=== PATIENT | female | born 1950 | race Caucasian/White ===

== ENCOUNTER → 2020-11-11 | Outpatient (REF) | payer MEDICARE | LOC: M LAB REF 12:39 | PROVIDERS: ATTEND Ophthalmology | DX: C44.1192 Basal cell carcinoma of skin of left lower eyelid, including canthus (principal); D23.122 Other benign neoplasm of skin of left lower eyelid, including canthus ==

== ENCOUNTER 2024-10-18 06:48 | Day surgery (SDC) | payer MEDICARE ==
[~2024-10-18] VITALS: Ht 160 cm; Wt 105.0 kg
[~2024-10-18 06:48] MED LIST: ALBU2.5V10 INH; ASPI81TA26 PO; COMBAER6 INH; COQ150CH PO; CYAN500T14 PO; CYCLOPENTOLATE 1% OPHTH SOLN 2ML BTL OS SCH; HYDR12CA PO; INDA1.253 PO; INSUHUMDS SC; LIDOCAINE 3.5 % 1ML OPHTH TOPICAL GEL OU ONE; LOSA100T46 PO; METO1TAB33 PO; MIDAZOLAM INJ 2MG/2ML VIAL As Ordered ONE; NITR-67 PO; OFLOXACIN 0.3 % (OCUFLOX) OPTH SOL 5ML OS ONE; OMAL75AU SQ; OMEG10002 PO; OYST1TAB PO; PANT40TA29 PO; PHENYLEPHRINE 10% OPHTH SOL 5ML OS PRN; PHENYLEPHRINE 2.5% OPHTH SOL 2ML OS SCH; PRED1TABL PO; PROBCAP14 PO; RA M500C PO; SEMA1PEN2 SQ; SYMB80INH INH; THERTAB52 PO; TOUJ300I2 SC; TRIC145T22 PO; TROPICAMIDE 1% OPHTH SOLN 15ML OS SCH; VITA-243 PO; [UNRECOGNIZED DRUG - OTHER]; fentaNYL 100 MCG/2 ML INJECTION As Ordered ONE
[2024-10-18] MEDS: LIDOCAINE 1% SDV 5ML VIAL As Ordered ONE (09:08)
[2024-10-18] MEDS: CEFUROXIME 1MG/0.1ML INTRACAMERAL INJ As Ordered ONE (09:15)
[2024-10-18] MEDS: BSS IRRIG/VANCO(10MG)/TOBRA(5MG)/EPINEPH(1:1000-0.5CC)500ML BAG-ORONLY As Ordered ONE (09:15)
[2024-10-18 09:21] VITALS: TEMP 97.5; O2SAT 95
[2024-10-18 09:44] VITALS: BP 121/77
== END 2024-10-18 10:02 | disposition home or self-care (01) ==
LOC: M SDC 06:48
PROVIDERS: ATTEND Ophthalmology
DX: E11.36 Type 2 diabetes mellitus with diabetic cataract (principal); H25.12 Age-related nuclear cataract, left eye; I10 Essential (primary) hypertension; J45.909 Unspecified asthma, uncomplicated; G47.30 Sleep apnea, unspecified; E78.00 Pure hypercholesterolemia, unspecified; Z79.82 Long term (current) use of aspirin; Z79.899 Other long term (current) drug therapy; Z79.4 Long term (current) use of insulin; Z79.52 Long term (current) use of systemic steroids; Z90.49 Acquired absence of other specified parts of digestive tract; Z90.710 Acquired absence of both cervix and uterus; Z87.19 Personal history of other diseases of the digestive system
CPT/HCPCS: 66984; J0697; J2250; J3010; V2632

== ENCOUNTER 2024-10-25 09:46 | Day surgery (SDC) | payer MEDICARE ==
[~2024-10-25] VITALS: Ht 160 cm; Wt 102.1 kg
[~2024-10-25 09:46] MED LIST changes: -CYCLOPENTOLATE 1% OPHTH SOLN 2ML BTL OS SCH; -LIDOCAINE 3.5 % 1ML OPHTH TOPICAL GEL OU ONE; -MIDAZOLAM INJ 2MG/2ML VIAL As Ordered ONE; -OFLOXACIN 0.3 % (OCUFLOX) OPTH SOL 5ML OS ONE; -PHENYLEPHRINE 10% OPHTH SOL 5ML OS PRN; -PHENYLEPHRINE 2.5% OPHTH SOL 2ML OS SCH; -TROPICAMIDE 1% OPHTH SOLN 15ML OS SCH; -fentaNYL 100 MCG/2 ML INJECTION As Ordered ONE
[2024-10-25] MEDS ORDERED: LIDOCAINE 2% 100MG/5ML SDV (FOR ANES.) As Ordered ONE (10:16)
[2024-10-25] MEDS ORDERED: propofoL 200 MG/20 ML VIAL As Ordered ONE (10:16)
[2024-10-25 10:38] VITALS: TEMP 97.2
[2024-10-25 10:59] VITALS: BP 123/60; O2SAT 93
== END 2024-10-25 11:00 | disposition home or self-care (01) ==
LOC: M OPP 09:46
PROVIDERS: ATTEND Surgery
DX: Z12.11 Encounter for screening for malignant neoplasm of colon (principal); R19.5 Other fecal abnormalities; D12.0 Benign neoplasm of cecum; K57.30 Diverticulosis of large intestine without perforation or abscess without bleeding; K64.2 Third degree hemorrhoids; G47.30 Sleep apnea, unspecified; Z91.048 Other nonmedicinal substance allergy status; Z79.82 Long term (current) use of aspirin; Z79.4 Long term (current) use of insulin; Z79.85 Long-term (current) use of injectable non-insulin antidiabetic drugs; Z79.52 Long term (current) use of systemic steroids; Z79.899 Other long term (current) drug therapy

== ENCOUNTER 2024-11-29 07:05 | Day surgery (SDC) | payer MEDICARE ==
[~2024-11-29] VITALS: Ht 160 cm; Wt 105.5 kg
[~2024-11-29 07:05] MED LIST changes: +OMAL300A IM; +PHENYLEPHRINE 10% OPHTH SOL 5ML OD PRN; +PRED-1142 PO; -PRED1TABL PO; +SYMB16INH INH; +[UNRECOGNIZED DRUG - CODE]
[2024-11-29] MEDS ORDERED: fentaNYL 100 MCG/2 ML INJECTION As Ordered ONE (07:28)
[2024-11-29] MEDS ORDERED: MIDAZOLAM INJ 2MG/2ML VIAL As Ordered ONE (07:28)
[2024-11-29] MEDS: LIDOCAINE 3.5 % 1ML OPHTH TOPICAL GEL OU ONE (07:42)
[2024-11-29] MEDS: TROPICAMIDE 1% OPHTH SOLN 15ML OD SCH (07:42)
[2024-11-29] MEDS: PHENYLEPHRINE 2.5% OPHTH SOL 2ML OD SCH (07:42)
[2024-11-29] MEDS: OFLOXACIN 0.3 % (OCUFLOX) OPTH SOL 5ML OD ONE (07:42)
[2024-11-29] MEDS: CYCLOPENTOLATE 1% OPHTH SOLN 2ML BTL OD SCH (07:42)
[2024-11-29] MEDS ORDERED: GLUCOSE 4 GM CHEW PO PRN (07:45)
[2024-11-29] MEDS ORDERED: DEXTROSE 50% 50ML SYRINGE IV PRN (07:45)
[2024-11-29] MEDS ORDERED: GLUCAGON INJ 1MG VIAL SC PRN (07:45)
[2024-11-29] MEDS: INSULIN LISPRO (NovoLOG) PER UNIT SC PRN (07:56)
[2024-11-29] MEDS: CEFUROXIME 1MG/0.1ML INTRACAMERAL INJ As Ordered ONE (08:35)
[2024-11-29] MEDS: LIDOCAINE 1% SDV 5ML VIAL As Ordered ONE (08:35)
[2024-11-29] MEDS: BSS IRRIG/VANCO(10MG)/TOBRA(5MG)/EPINEPH(1:1000-0.5CC)500ML BAG-ORONLY As Ordered ONE (08:35)
[2024-11-29 08:51] VITALS: BP 131/61; TEMP 97.2; O2SAT 96
== END 2024-11-29 09:13 | disposition home or self-care (01) ==
LOC: M SDC 07:05
PROVIDERS: ATTEND Ophthalmology
DX: H25.11 Age-related nuclear cataract, right eye (principal); E11.9 Type 2 diabetes mellitus without complications; G47.30 Sleep apnea, unspecified; J30.9 Allergic rhinitis, unspecified; Z79.899 Other long term (current) drug therapy; Z98.42 Cataract extraction status, left eye
CPT/HCPCS: 66984; J0697; J1815; J2250; J3010; V2632